=== PATIENT | female | born 1980 | race Caucasian/White ===

== ENCOUNTER 2022-07-09 16:41 | Outpatient (CLI) | payer OTHER, SELFPAY ==
--- NOTE | ~2022-07-09 | US_ITS ---
EXAMINATION: US soft tissue LE LT DATE: 07/09/2022 17:50 INDICATION: Posterior left knee pain TECHNIQUE: Multiple grayscale and Doppler ultrasound images of the region of concern at the popliteal fossa the left knee were obtained. COMPARISON: None FINDINGS: No Wadsworth's cyst or other abnormal masses or fluid collections at the left popliteal fossa. Popliteal vein is patent. No popliteal artery aneurysm. IMPRESSION: 1. Normal ultrasound images of the left popliteal fossa. Reviewed, dictated and finalized at location A. [facility] [employer]
== END 2022-07-09 16:42 | disposition home or self-care (01) ==
PROVIDERS: PCP Family Medicine; Visit Provider Physician Assistant Medical
DX: M25.562 Pain in left knee (principal)
CPT/HCPCS: 76882

== ENCOUNTER 2023-08-09 00:19 | Day surgery (SDC) | payer OTHER, SELFPAY ==
[2023-08-03 11:30] VITALS: BMI 25.8
[2023-08-09 06:22] VITALS: BP 122/66; PULSE 70; RESP 16; TEMP 36.8; O2SAT 100; BMI 26.4
[2023-08-09] MEDS: LACTATED RINGERS 1,000 ML 150 ML IV CONT (06:30)
--- NOTE | 2023-08-09 06:44 | WPDANESEPPF ---
Anes - Initial Pre Proc Eval Procedure: Operation Date: 08/09/23 07:30 Proposed Procedures p Esophagogastroduodenoscopy - Ezra Pugh MD Date/Time: 08/09/23 06:44 Surgeon: Ezra Pugh MD Pre Op Diagnosis: GERD Patient Data Age: 42 Gender: F Height: 1.75 m Weight: 81.4 kg Last Vital Signs Temp 36.8 C 08/09/23 06:22 Pulse 70 08/09/23 06:22 Resp 16 08/09/23 06:22 BP 122/66 08/09/23 06:22 Pulse Ox 100 08/09/23 06:22 O2 Del Method Room Air 08/09/23 06:22 Allergies Allergy/AdvReac Type Severity Reaction Status Date / Time amoxicillin Allergy Unknown Rash Verified 08/09/23 06:21 Home Medications Medication Instructions Recorded Confirmed Type cetirizine 10 mg capsule (Zyrtec) 10 mg PO DAILY 10/20/21 08/09/23 History spironolactone 50 mg tablet See Rx Instructions .Route 10/27/22 08/09/23 Rx .COMPLEX #180 tabs lisdexamfetamine 40 mg capsule 40 mg PO DAILY #30 caps 07/07/23 08/09/23 Rx (Vyvanse) sertraline 100 mg tablet (Zoloft) 100 mg PO DAILY #90 tabs 07/15/23 08/09/23 Rx omeprazole 40 mg capsule,delayed 40 mg PO BID #180 caps 07/30/23 08/09/23 Rx release mometasone 0.1 % topical ointment 1 applic topical DAILY PRN Rash 08/03/23 08/09/23 History Patient hx anesthesia problems: none Family hx anesthesia problems: none Results Review: All pre-operative results and documents have been reviewed as part of the pre-operative evaluation. FORMERLY [facility], [facility]–1983 Past Medical History Medical History (Updated 08/09/23 @ 06:44 by Kvng Tejada DO) ADD (attention deficit disorder) without hyperactivity ADHD Adult BMI 27.0-27.9 kg/sq m Anxiety BMI 25.0-25.9,adult BMI 26.0-26.9,adult Chronic GERD Encounter for insertion of mirena IUD 02/06/2021 Surgical History Surgical History H/O breast biopsy 12/2022 - Family History Family History Grandparent Family history of thyroid disease Hypertension Diabetes mellitus Other Cerebrovascular accident Family history of malignant neoplasm of breast Social History Social History Smoking status: Never smoker Alcohol intake: current Drinks per week: 2 Alcohol use details: DRINKS Substance use: never Substance use type: does not use Lack of Transportation: No Lack of Food: Never True Current Housing: I Have Housing Concerned About Future Housing: No Difficulty Paying Gas/Electric Bills: No Difficulty Paying for Meds: No Currently Unemployed: No Education: Trade/Vocational Certificate Difficulty w/ Childcare or Family Care: No Living arrangements: with family Additional living arrangements comments: and kids Occupation/Education: occupation Additional occupation/education comments: [employer] Gender identity (if verbalized by the patient): Female Sexual Orientation (if Verbalized by the Patient): Straight or Heterosexual Spiritual care concerns: No Agree to blood products: Yes Anes - Eval Final PreProcedure Day of Procedure 08/09/23 06:44 Patient weight: overweight Heart: regular rate and rhythm Lungs: clear to auscultation Airway: Mallampati scale class II Neurological: alert and oriented Last oral intake: >/= 8 hours ASA classification: II Emergent: no Anesthetic plan: proceed Anesthesia type and monitoring: general GIVS and standard monitoring Results Review: All pre-operative results and documents have been reviewed as part of the pre-operative evaluation. Informed Consent: The patient's anesthetic plan and its attendant risks and benefits were discussed with the patient/family/POA. Questions were solicited and answers provided to the satisfaction of the patient/family/POA.
--- NOTE | 2023-08-09 07:39 | PM.HPGS ---
History of Present Illness History of Present Illness Consent: Risks, benefits, and alternatives have been discussed and questions answered. Patient agrees to proceed with procedure. Chief complaint: GERD Narrative: Mary Fink is a 42 year old female with odynophagia for almost a year, never had egd Review of Systems Constitutional: Constitutional: Denies headache(s) and Denies weakness Eyes: Eyes: Denies blurry vision ENT: Reports Normal hearing present, Denies headache(s) and Denies neck pain Cardiovascular: Cardiovascular: Denies chest pain and Denies dyspnea Respiratory: Respiratory: Denies dyspnea Gastrointestinal: Gastrointestinal: Reports no additional gastrointestinal complaints Genitourinary: Genitourinary: Denies dysuria Musculoskeletal: Musculoskeletal: Denies neck pain Integumentary/Breasts: Skin/Breast: Denies dry skin Neurologic: Reports Normal hearing present, Denies headache(s) and Denies weakness Psychiatric: Psychiatric: Denies anxiety Endocrine: Endocrine: Denies change in body appearance Hematologic/Lymphatic: Hematologic/Lymphatic: Denies easy bleeding Allergic/Immunologic: Allergic/Immunologic: Denies urticaria PMFSH Past Medical History Medical History (Updated 08/09/23 @ 07:39 by Ezra Pugh MD) ADD (attention deficit disorder) without hyperactivity ADHD Adult BMI 27.0-27.9 kg/sq m Anxiety BMI 25.0-25.9,adult BMI 26.0-26.9,adult Chronic GERD Encounter for insertion of mirena IUD 02/06/2021 Odynophagia Surgical History Surgical History H/O breast biopsy 12/2022 - Family History Family History Grandparent Family history of thyroid disease Hypertension Diabetes mellitus Other Cerebrovascular accident Family history of malignant neoplasm of breast Social History Social History Smoking status: Never smoker Alcohol intake: current Drinks per week: 2 Alcohol use details: DRINKS Substance use: never Substance use type: does not use Lack of Transportation: No Lack of Food: Never True Current Housing: I Have Housing Concerned About Future Housing: No Difficulty Paying Gas/Electric Bills: No Difficulty Paying for Meds: No Currently Unemployed: No Education: Trade/Vocational Certificate Difficulty w/ Childcare or Family Care: No Living arrangements: with family Additional living arrangements comments: and kids Occupation/Education: occupation Additional occupation/education comments: [employer] Gender identity (if verbalized by the patient): Female Sexual Orientation (if Verbalized by the Patient): Straight or Heterosexual Spiritual care concerns: No Agree to blood products: Yes Meds Home Medications and Allergies Home Medications Medication Instructions Recorded Confirmed Type cetirizine 10 mg capsule (Zyrtec) 10 mg PO DAILY 10/20/21 08/09/23 History spironolactone 50 mg tablet See Rx Instructions .Route 10/27/22 08/09/23 Rx .COMPLEX #180 tabs lisdexamfetamine 40 mg capsule 40 mg PO DAILY #30 caps 07/07/23 08/09/23 Rx (Vyvanse) sertraline 100 mg tablet (Zoloft) 100 mg PO DAILY #90 tabs 07/15/23 08/09/23 Rx omeprazole 40 mg capsule,delayed 40 mg PO BID #180 caps 07/30/23 08/09/23 Rx release mometasone 0.1 % topical ointment 1 applic topical DAILY PRN Rash 08/03/23 08/09/23 History Allergies Allergy/AdvReac Type Severity Reaction Status Date / Time amoxicillin Allergy Unknown Rash Verified 08/09/23 06:21 Vital Signs Vital Signs - 24 hr 08/09/23 06:22 Temperature 98.2 F Pulse Rate 70 Respiratory Rate 16 Blood Pressure 122/66 Pulse Oximetry 100 Oxygen Delivery Room Air Exam Const: General: comfortable and no acute distress HENMT: Face/Nose/Sinus: Normal nares present Eyes: General: appe
[2023-08-09 07:55] VITALS: BP 127/86; PULSE 88; RESP 18; O2SAT 100
[2023-08-09 08:05] VITALS: BP 121/76; PULSE 85; RESP 21; O2SAT 100
[2023-08-09 08:15] VITALS: BP 117/77; PULSE 72; RESP 18; O2SAT 100
== END 2023-08-09 08:18 | disposition home or self-care (01) ==
PROVIDERS: PCP Family Medicine; Visit Provider Internal Medicine Gastroenterology
PROC: 0DJ08ZZ Inspection of Upper Intestinal Tract, Via Natural or Artificial Opening Endoscopic (ICD-10-PCS; CPT 43235; principal; 2023-08-09 07:30)
DX: K21.00 Gastro-esophageal reflux disease with esophagitis, without bleeding (principal); K22.2 Esophageal obstruction; K44.9 Diaphragmatic hernia without obstruction or gangrene; F90.9 Attention-deficit hyperactivity disorder, unspecified type; F41.9 Anxiety disorder, unspecified; Z79.82 Long term (current) use of aspirin; Z80.3 Family history of malignant neoplasm of breast
CPT/HCPCS: 43239; 43249; 88305; C1726; J2001; J2704; J7120